=== PATIENT | male | born 1940 | race Caucasian/White ===

== ENCOUNTER → 2018-12-26 | Day surgery (SDC) | payer OTHER ==
[~2018-12-26] VITALS: Ht 175.3 cm; Wt 127.0 kg
[~2018-12-26] MED LIST: ASPIR 8181 MG PO; ASPIRIN325 PO; BYSTOLIC 5 MG5 M1 PO; BYSTOLIC10 MG PO; CENTRUM SILVER1 EAC4 PO; CHLORTHALIDONE25 MG PO; COENZYME Q1050 MG PO; COUMADIN 5 MG TA5 M1 PO; COZAAR 50 MG TA50 M2 PO; COZAAR100 MG PO; DEXILANT60 MG PO; FENOFIBRATE160 MG PO; GLUCOSAMINE H1500 MG PO; KEFLEX250 MG PO; MULTAQ 400 MG400 MG PO; MULTI VITAMIN1 EACH PO; MYRBETRIQ50 MG PO; PRILOSEC 20 MG20 MG PO; TOPROL XL50 MG PO; TRICOR145 MG PO; XARELTO10 MG PO
--- NOTE | ~2018-12-26 | O ---
[facility] [place] [address] OPERATIVE REPORT Name: EDWIN WHITLEY Room #: REG [facility]#: [id number] Admission: 12/26/18 Attend Phys: Suni Goldstein, Discharge: Date of : 38 Report #: [id number] THIS REPORT FOR: //name// CC: MARK Goldstein DATE OF SERVICE: 12/26/2018 PREOPERATIVE DIAGNOSIS: Left carpal tunnel syndrome. POSTOPERATIVE DIAGNOSIS: Left carpal tunnel syndrome. PROCEDURE PERFORMED: Left open carpal tunnel release. SURGEON: Suni Goldstein MD ANESTHESIA: General mask anesthesia. ESTIMATED BLOOD LOSS: Minimal. TOURNIQUET TIME: Approximately 10 minutes, please see intraoperative record. COMPLICATIONS: None. CONDITION: Stable. DISPOSITION: Recovery room. INDICATIONS: The patient is a 78-year-old male with the above-mentioned diagnosis. He elects for operative treatment. The risks, benefits, alternatives and complications were discussed including but not limited to infection, damage to vessels or nerves, incomplete relief or worsening of any symptoms. Informed consent was obtained. The correct extremity was identified and labeled by myself after verbal confirmation of patient as well as visual confirmation and signed informed consent DESCRIPTION OF PROCEDURE: The patient was brought back to the operating room and placed on the operating table in the supine position. He received preoperative antibiotics. Tourniquet was placed over padding on the patient's left upper extremity. The left upper extremity was sterilely prepped and draped in the usual fashion. A final timeout was taken to verify correct patient, operative procedure and operative site, all concurred. The arm was elevated, exsanguinated and the tourniquet inflated. The entire procedure was done with the aid of 3.5 times loupe magnification. Next, approximately 2.5 cm was elevated, exsanguinated and tourniquet inflated. Approximately 2.5 cm incision was made over the carpal [address] [address] OPERATIVE REPORT Name: EDWIN WHITLEY Room #: REG [facility].#: [id number] Admission: 12/26/18 Attend Phys: Suni Goldstein, Discharge: Date of : 38 Report #: [id number] tunnel in line with the ring and long finger web space. The dissection was carried down through subcutaneous tissue with tenotomy scissors. In the mid portion of the incision, a 15 blade was used to incise the very thick transverse carpal ligament. The very thick transverse carpal ligament was transected proximally from the antebrachial fascia of the forearm, all the way through the fat in the palm. The nerve had hyperemic appearance, but appeared to have a good vascular supply. The wound was thoroughly irrigated. Skin was closed with 4-0 nylon suture. The wound was infiltrated with approximately 10 mL of 0.25% Marcaine subcutaneously. The wound was dressed with Adaptic and sterile gauze. He was placed in a bulky dressing. All fingers were pink with brisk capillary refill at the conclusion of case after deflation of tourniquet. All sponge and needle counts were correct. The patient was transferred to postoperative recovery room in stable condition. By: [id number] Suni Goldstein MD /nt
[2018-12-26 10:28] LABS: CALCIUM 9.3 mg/dL (8.5-10.1); CREATININE 1.3 mg/dL (0.7-1.3); POTASSIUM 3.6 mmol/L (3.5-5.1)
[2018-12-26 10:53] VITALS: BP 129/69
[2018-12-26 17:15] VITALS: BP 129/69
== END | disposition home or self-care (01) ==
LOC: OR 12-25 13:33
PROVIDERS: Orthopaedic Surgery Hand Surgery
DX: G56.02 Carpal tunnel syndrome, left upper limb (principal); I10 Essential (primary) hypertension; E78.5 Hyperlipidemia, unspecified; K21.9 Gastro-esophageal reflux disease without esophagitis; E78.00 Pure hypercholesterolemia, unspecified; Z95.0 Presence of cardiac pacemaker; Z87.442 Personal history of urinary calculi; Z98.890 Other specified postprocedural states; Z79.899 Other long term (current) drug therapy; Z85.828 Personal history of other malignant neoplasm of skin
CPT/HCPCS: 50010; 50101; 50386; 56526; 57006; 57091; 57178; 62110; 62900; 70005

== ENCOUNTER → 2019-04-15 | Outpatient (CLI) | payer OTHER | LOC: SJCVC 10:19 | DX: Z45.018 Encounter for adjustment and management of other part of cardiac pacemaker (principal); R94.31 Abnormal electrocardiogram [ECG] [EKG]; I25.10 Atherosclerotic heart disease of native coronary artery without angina pectoris; I48.0 Paroxysmal atrial fibrillation; I10 Essential (primary) hypertension; E78.5 Hyperlipidemia, unspecified; I49.5 Sick sinus syndrome; I65.23 Occlusion and stenosis of bilateral carotid arteries; Z79.82 Long term (current) use of aspirin; Z79.899 Other long term (current) drug therapy; Z87.891 Personal history of nicotine dependence ==

== ENCOUNTER → 2020-01-27 | Outpatient (CLI) | payer OTHER | LOC: SJCVCIMAG 11:02 | PROVIDERS: ATTEND Internal Medicine | DX: I65.23 Occlusion and stenosis of bilateral carotid arteries (principal); R94.31 Abnormal electrocardiogram [ECG] [EKG]; I48.0 Paroxysmal atrial fibrillation; I10 Essential (primary) hypertension; E78.5 Hyperlipidemia, unspecified; I49.5 Sick sinus syndrome; I25.10 Atherosclerotic heart disease of native coronary artery without angina pectoris; Z95.0 Presence of cardiac pacemaker; Z79.82 Long term (current) use of aspirin; Z79.899 Other long term (current) drug therapy; Z87.891 Personal history of nicotine dependence ==

== ENCOUNTER → 2020-07-28 | Outpatient (CLI) | payer OTHER | LOC: SJCVC 13:28 | PROVIDERS: ATTEND Internal Medicine | DX: R94.31 Abnormal electrocardiogram [ECG] [EKG] (principal); I25.10 Atherosclerotic heart disease of native coronary artery without angina pectoris; I48.0 Paroxysmal atrial fibrillation; I10 Essential (primary) hypertension; E78.5 Hyperlipidemia, unspecified; I65.23 Occlusion and stenosis of bilateral carotid arteries; I49.5 Sick sinus syndrome; Z79.82 Long term (current) use of aspirin; Z79.84 Long term (current) use of oral hypoglycemic drugs; Z79.899 Other long term (current) drug therapy; Z88.8 Allergy status to other drugs, medicaments and biological substances; Z95.0 Presence of cardiac pacemaker; Z87.891 Personal history of nicotine dependence ==

== ENCOUNTER → 2021-01-27 | Outpatient (CLI) | payer OTHER | LOC: SJCVC 13:29 | PROVIDERS: ATTEND Internal Medicine | DX: R94.31 Abnormal electrocardiogram [ECG] [EKG] (principal); I25.10 Atherosclerotic heart disease of native coronary artery without angina pectoris; I48.0 Paroxysmal atrial fibrillation; I10 Essential (primary) hypertension; E78.5 Hyperlipidemia, unspecified; I65.23 Occlusion and stenosis of bilateral carotid arteries; Z95.0 Presence of cardiac pacemaker; I49.5 Sick sinus syndrome; Z98.890 Other specified postprocedural states; Z79.82 Long term (current) use of aspirin; Z79.84 Long term (current) use of oral hypoglycemic drugs; Z79.899 Other long term (current) drug therapy; Z88.8 Allergy status to other drugs, medicaments and biological substances; Z87.891 Personal history of nicotine dependence ==